=== PATIENT | male | born 1950 | race Caucasian/White ===

== ENCOUNTER → 2018-03-29 | Outpatient (CLI) | payer MEDICARE, OTHER ==
[~2018-03-29] MED LIST: ALBUTEROL 0.083% (NEB) 2.5 MG/3 ML AMP
== END | disposition home or self-care (01) ==
LOC: PUL 11:10
DX: R06.00 Dyspnea, unspecified (principal); R06.02 Shortness of breath
CPT/HCPCS: 94060; 94664; 94726; 94729